=== PATIENT | male | born 1965 | race African-American/Black ===

== ENCOUNTER 2023-02-23 08:54 | Emergency (ER) | payer BC ==
[2023-02-23] MEDS ORDERED: Morphine 4 MG/ML VIAL ONE (09:24)
[2023-02-23] MEDS ORDERED: Morphine 2 MG/ML VIAL ONE (09:24)
[2023-02-23 09:43] LABS: INR-International Normal Ratio 0.9; Prothrombin Time 12.7 sec (12.0-14.7)
[2023-02-23 09:52] LABS: ALT (SGPT) 66 U/L (8-55); AST (SGOT) 52 U/L (5-34); Albumin 4.9 g/dL (3.5-5.0); Alkaline Phosphatase 91 U/L (40-110); Anion Gap 17 mmol/L (10-20); BUN (Urea Nitrogen) 19 mg/dL (8.4-25.7); Bilirubin, Total 0.4 mg/dL (0.2-1.2); Calc. Creatinine Clearance 0 mL/min (70-130); Calcium 9.6 mg/dL (7.8-10.44); Carbon Dioxide 20 mmol/L (22-29); Chloride 105 mmol/L (98-107); Estimated GFR 67; Globulin 4.6 g/dL (2.4-3.5); Glucose 190 mg/dL (70-105); Potassium 4.2 mmol/L (3.5-5.1); Protein, Total 9.5 g/dL (6.0-8.3); Sodium 138 mmol/L (136-145)
[2023-02-23 09:54] LABS: Hemoglobin 14.8 g/dL (14.0-18.0); Mean Corpuscular HGB CONC 33.8 g/dL (32.0-36.0); Mean Corpuscular Hemoglobin 32.1 pg (27.0-31.0); Mean Corpuscular Volume 94.7 fl (78.0-98.0); Mean Platelet Volume 9.2 fL (7.4-10.4); Platelet Count 212 10x3/uL (130-400); White Blood Cell (WBC) Count 5.9 10x3/uL (4.8-10.8)
[2023-02-23 10:00] LABS: Band 7 % (5-11); Eosinophils 5 % (0-10); Lymphocytes 25 % (21-51); MDiff Complete? YES; Monocytes 7 % (0-10); Neutrophil 56 % (42-75)
[2023-02-23] MEDS ORDERED: Iopamidol 370 76% 100 ML VIAL ONE (11:47)
== END 2023-02-23 11:08 | disposition home or self-care (01) ==
LOC: BURERS 08:54
DX: S22.41XA Multiple fractures of ribs, right side, initial encounter for closed fracture (principal); I10 Essential (primary) hypertension; W01.0XXA Fall on same level from slipping, tripping and stumbling without subsequent striking against object, initial encounter
CPT/HCPCS: 71260; 74177; 80053; 85025; 85610; 96374; J2270; J2272; Q9967